=== PATIENT | female | born 2000 | race African-American/Black ===

== ENCOUNTER 2021-10-03 09:38 | Emergency (ER) | payer OTHER ==
[~2021-10-03] VITALS: Ht 175.3 cm; Wt 71.2 kg
[2021-10-03 09:41] VITALS: BP 136/86
--- NOTE | 2021-10-03 09:58 | NUR ---
LAB COLLECTING PT BLOODWORK AT THIS TIME
--- NOTE | 2021-10-03 10:00 | NUR ---
dr. pierre evaluating pt
--- NOTE | 2021-10-03 10:07 | NUR ---
20 Y FEMALE FROM HOME C/O LOWER ABD PAIN X1 DAY AND ESTRELLA X YESTERDAY. PT FINISHED ANTIBIOTIC 2 DAYS AGO FOR UTI. HOME TESTED POSITIVE TODAY AND PT WOULD LIKE TO VERIFY POSITIVE TEST. LMP 09/03/21. PT ADMITS TO HAVING UNPROTECTED SEX ABOUT A MONTH AGO. PT ALSO STATED SHE HAS HAD SOME ABDOMINAL CRAMPING LIKE PAIN, BUT DENEIS ANY N/V AT THIS TIME. PT CURRENTLY A&OX4 PMH: DENIES NKA
[2021-10-03 10:17] LABS: BASOPHILS % (AUTO) 0.1 % (0.0-2.0); EOSINOPHILS % (AUTO) 0.5 % (0.0-4.0); HEMATOCRIT 38.2 % (36-48); HEMOGLOBIN 12.7 g/dL (12.0-16.0); LYMPHOCYTES # (AUTO) 1.3 K/uL (2.5-16.5); LYMPHOCYTES % (AUTO) 28.6 % (20.5-51.1); MEAN CORPUSCULAR HEMOGLOBIN 27 pg (27-31); MEAN CORPUSCULAR HGB CONC 33 g/dL (33-37); MEAN CORPUSCULAR VOLUME 81.7 fL (80-94); MONOCYTES # (AUTO) 0.4 K/uL (0.8-1.0); NEUTROPHILS # (AUTO) 2.7 K/uL (1.8-7.7); NEUTROPHILS % (AUTO) 61.8 % (42.2-75.2); PLATELET COUNT (AUTO) 249 K/uL (140-450); RED BLOOD CELL COUNT(AUTO) 4.68 MIL/uL (4.20-5.40); RED CELL DISTRIBUTION WIDTH 14.6 % (11.6-13.7); WHITE BLOOD COUNT (AUTO) 4.4 K/uL (4.5-11.0)
[2021-10-03 10:19] LABS: APPEARANCE,URINE HAZY (CLEAR); BILIRUBIN,URINE NEGATIVE (NEGATIVE); BLOOD, URINE NEGATIVE (NEGATIVE); COLOR,URINE YELLOW (YELLOW); LEUKOCYTE ESTERASE ,URINE 2+ (NEGATIVE); NITRITE, URINE NEGATIVE (NEGATIVE); PH,URINE 6.5 (5.0-9.0); UGLUCOSE NEGATIVE (NEGATIVE)
[2021-10-03 10:29] LABS: RBC,URINE 0-5 /HPF (0-5); WBC,URINE 16-25 (MOD) /HPF (0-5)
[2021-10-03 10:32] LABS: ALBUMIN 4.1 g/dL (3.4-5.0); ANION GAP 11.4 (8-16); CARBON DIOXIDE 25.4 mmol/L (21-32); CREATININE 0.8 mg/dL (0.6-1.3); POTASSIUM 3.8 mmol/L (3.5-5.1); TOTAL BILIRUBIN 0.2 mg/dL (0.0-1.0)
[2021-10-03] MEDS ORDERED: NITR100C7 PO (11:11)
[2021-10-03 11:15] VITALS: BP 136/86
--- NOTE | 2021-10-03 12:03 | NUR ---
Patient discharged with v/s stable. Written and verbal after care instructions given and explained. Patient alert, oriented and verbalized understanding of instructions. Ambulatory with steady gait. All questions addressed prior to discharge. ID band removed. Patient advised to follow up with PMD. Rx of MACROBID given. Patient educated on indication of medication including possible reaction and side effects. Opportunity to ask questions provided and answered. PT D/C BY DR. KENYON. PT RECIEVED PAPERWORK, BUT DID NOT SIGN PAPERWORK. D/C PAPERWORK COSIGNED BY [employer]
== END 2021-10-03 12:03 | disposition home or self-care (01) ==
LOC: MED 09:38
DX: O23.10 Infections of bladder in pregnancy, unspecified trimester (principal); N30.90 Cystitis, unspecified without hematuria
CPT/HCPCS: 36415; 80053; 81001; 81025; 84702; 85025; 87086; 99283

== ENCOUNTER 2021-10-08 20:40 | Emergency (ER) | payer OTHER ==
[~2021-10-08] VITALS: Ht 175.3 cm; Wt 72.6 kg
[~2021-10-08 20:40] MED LIST: NITR100C7 PO
[2021-10-08 21:05] VITALS: BP 126/65
--- NOTE | 2021-10-08 22:31 | NUR ---
PT RETURN TO ER LOBBY FROM ULTRASOUND
[2021-10-08 23:12] LABS: BASOPHILS # (AUTO) 0.1 K/uL (0.00-0.22); BASOPHILS % (AUTO) 1.1 % (0.0-2.0); EOSINOPHILS % (AUTO) 0.6 % (0.0-4.0); HEMATOCRIT 35.1 % (36-48); HEMOGLOBIN 11.8 g/dL (12.0-16.0); MEAN CORPUSCULAR HEMOGLOBIN 28 pg (27-31); MEAN CORPUSCULAR HGB CONC 34 g/dL (33-37); MEAN CORPUSCULAR VOLUME 81.9 fL (80-94); MONOCYTES # (AUTO) 0.7 K/uL (0.8-1.0); MONOCYTES % (AUTO) 10.6 % (1.7-9.3); NEUTROPHILS # (AUTO) 4.1 K/uL (1.8-7.7); NEUTROPHILS % (AUTO) 58.7 % (42.2-75.2); PLATELET COUNT (AUTO) 298 K/uL (140-450); RED BLOOD CELL COUNT(AUTO) 4.28 MIL/uL (4.20-5.40); RED CELL DISTRIBUTION WIDTH 14.7 % (11.6-13.7); WHITE BLOOD COUNT (AUTO) 6.9 K/uL (4.5-11.0)
--- NOTE | 2021-10-08 23:20 | NUR ---
PT CLEARED FOR DISCHARGE BY DR. CANALES. PT LEFT FACILITY WITHOUT DISCHARGE INSTRUCTIONS.
[2021-10-08 23:29] LABS: APPEARANCE,URINE CLEAR (CLEAR); BILIRUBIN,URINE NEGATIVE (NEGATIVE); BLOOD, URINE NEGATIVE (NEGATIVE); COLOR,URINE YELLOW (YELLOW); LEUKOCYTE ESTERASE ,URINE NEGATIVE (NEGATIVE); NITRITE, URINE NEGATIVE (NEGATIVE); UGLUCOSE NEGATIVE (NEGATIVE)
== END 2021-10-08 23:20 | disposition home or self-care (01) ==
LOC: MED 20:40
DX: O34.81 Maternal care for other abnormalities of pelvic organs, first trimester (principal); N83.292 Other ovarian cyst, left side; Z3A.01 Less than 8 weeks gestation of pregnancy
CPT/HCPCS: 36415; 76817; 81003; 84702; 85025; 86900; 86901; 99284

== ENCOUNTER 2021-12-29 20:32 | Emergency (ER) | payer OTHER ==
--- NOTE | 2021-12-29 20:53 | NUR ---
CALLED BACK NO RESPONSE.
--- NOTE | 2021-12-29 21:28 | NUR ---
CALLED PATIENT BACK NO RESPONSE FROM LOBBY, OUTSIDE, OR PARKING LOT.
--- NOTE | 2021-12-29 22:00 | NUR ---
CALLED PATIENT BACK FROM LOBBY, OUTSIDE, AND PARKING LOT, NO RESPONSE. NO RESPONSE ON TELEPHONE.
== END 2021-12-29 22:00 | disposition left against medical advice (07) ==
LOC: MED 20:32
DX: R21 Rash and other nonspecific skin eruption (principal); Z53.21 Procedure and treatment not carried out due to patient leaving prior to being seen by health care provider